=== PATIENT | male | born 1970 | race Caucasian/White ===

== ENCOUNTER 2020-03-01 16:21 | Outpatient (REF) | payer BC, SELFPAY | END 2020-03-01 16:22 | disposition home or self-care (01) | LOC: HO.LAB 16:21 | PROVIDERS: PCP Family Medicine; Visit Provider Internal Medicine | DX: Z20.828 Contact with and (suspected) exposure to other viral communicable diseases (principal) | CPT/HCPCS: U0003 ==

== ENCOUNTER 2020-04-19 09:59 | Outpatient (REF) | payer BC, SELFPAY | END 2020-04-19 10:00 | disposition home or self-care (01) | LOC: HO.LAB 09:59 | PROVIDERS: Visit Provider Internal Medicine | DX: Z20.828 Contact with and (suspected) exposure to other viral communicable diseases (principal) | CPT/HCPCS: C9803; U0003 ==

== ENCOUNTER 2020-11-18 14:38 | Outpatient (REF) | payer BC, SELFPAY ==
--- NOTE | ~2020-11-18 | XR_ITS ---
EXAMINATION: XR RIBS, BILATERAL CLINICAL INFORMATION: Fluoroscopy tinier COMPARISON: None TECHNIQUE: 3 views of the bilateral ribs were obtained. FINDINGS: Lungs are clear. No consolidation, pneumothorax, or pleural effusion. The cardiomediastinal silhouette and pulmonary vasculature are normal. Osseous structures are unremarkable. Multiple views of bilateral ribs reveal no fracture or bony abnormality. There is moderate spondylosis dorsal spine. XR/XR ribs BI 3V IMPRESSION: Unremarkable chest exam. No visible rib fractures seen.
== END 2020-11-18 14:39 | disposition home or self-care (01) ==
LOC: HO.XRAY 14:38
PROVIDERS: Absent Provider Family Medicine; PCP Family Medicine; Visit Provider Emergency Medicine
DX: R07.89 Other chest pain (principal); R07.81 Pleurodynia
CPT/HCPCS: 71110

== ENCOUNTER 2020-12-24 12:01 | Outpatient (REF) | payer BC, SELFPAY ==
--- NOTE | ~2020-12-24 | XR_ITS ---
EXAMINATION: XR STERNUM CLINICAL INFORMATION: Pain and tenderness at the base of the sternum. COMPARISON: Bilateral rib radiographs dated 11/18/2020. TECHNIQUE: 2 views of the sternum were obtained. FINDINGS: The sternum, manubrium and sternomanubrial joint are intact with normal alignment. There is no acute fracture. The xiphoid process shows curvature with anterior orientation of the chest without abnormality. The soft tissues are unremarkable. XR/XR sternum min 2V IMPRESSION: Unremarkable sternum.
== END 2020-12-24 12:02 | disposition home or self-care (01) ==
LOC: HO.XRAY 12:01
PROVIDERS: PCP Family Medicine; Visit Provider Family Medicine
DX: R19.00 Intra-abdominal and pelvic swelling, mass and lump, unspecified site (principal)
CPT/HCPCS: 71120

== ENCOUNTER 2021-03-23 07:54 | Emergency (ER) | payer BC, SELFPAY ==
--- NOTE | ~2021-03-23 | CT_ITS ---
EXAMINATION: CT ABDOMEN AND PELVIS WITHOUT CONTRAST CLINICAL INFORMATION: Right upper to mid back pain. Concern for kidneys. COMPARISON: CT abdomen 07/04/2019 TECHNIQUE: Multidetector volumetric imaging was performed from the superior aspect of the liver through the pubic symphysis. Sagittal and coronal reformatted images were obtained on the technologist's workstation. This CT examination was performed using dose optimization techniques as appropriate, variously including the following: *Automated exposure control *Adjustment of mA and/or kV according to patient size (this includes techniques or standardized protocols for targeted exams where dose is matched to indication/reason for exam; i.e. extremities or head) *Use of iterative reconstruction technique DLP: 779 mGy-cm FINDINGS: LUNG BASES: Evaluation on the chest CT from today. LIVER, GALLBLADDER, AND BILIARY TREE: The liver is normal in size, shape, and attenuation. No focal hepatic lesion or biliary ductal dilatation is present. Status postcholecystectomy. PANCREAS: Unremarkable. SPLEEN: Unremarkable. ADRENAL GLANDS: Unremarkable. KIDNEYS AND URETERS: The kidneys are normal in size, shape, and attenuation. No hydronephrosis, hydroureter, or calculi seen. No perinephric stranding. BLADDER: Unremarkable. GASTROINTESTINAL TRACT: The small and large bowel are unremarkable. Sigmoid diverticulosis. No diverticulitis. The appendix is unremarkable. ABDOMINAL WALL: No significant hernia is appreciated. Postoperative findings of probable left inguinal hernia repair. LYMPH NODES: No lymphadenopathy seen. VASCULAR: Unremarkable. PELVIC VISCERA: No pelvic mass. OSSEOUS STRUCTURES: Redemonstrated are postoperative changes in lower lumbar spine related to instrumented fusion. No evidence of hardware failure. Multilevel degenerative changes in the spine. CT/CT abdomen pelvis wo con IMPRESSION: No acute or significant abnormalities is identified in the abdomen or pelvis. No renal or ureteral calculi. No hydronephrosis.
--- NOTE | ~2021-03-23 | CT_ITS ---
EXAMINATION: CT CHEST WITHOUT CONTRAST CLINICAL INFORMATION: Right lateral posterior chest wall pain. COMPARISON: Rib x-rays of 11/18/2020, chest x-ray of 12/17/2018, chest CT of 11/18/2013, selected images of the abdomen and pelvic CT of 12/12/2018. TECHNIQUE: Multidetector volumetric CT imaging of the chest was done. Axial MIP volume rendering provided. Sagittal and coronal reformatted images were obtained. This CT examination was performed using dose optimization techniques as appropriate, variously including the following: Automated exposure control. Adjustment of mA and/or kV according to patient size (this includes techniques or standardized protocols for targeted exams where dose is matched to indication/reason for exam; i.e. extremities or head). Use of iterative reconstruction technique. DLP: 405 mGy-cm FINDINGS: SOUBRETTE: Unremarkable. LUNGS: The lungs are clear with no evidence of inflammation or significant nodules. A 0.2 cm dense pleural-based/subpleural nodule in the left upper lobe posterolaterally (series 5 image 113) and a tiny 0.2 cm nodule in the inferior right upper lobe anteromedially (series 5 image 204) are stable since the previous CT of 2013 and are considered benign. MEDIASTINUM: Cardiac size is normal. No pericardial effusion. An ascending aorta measures 3.7 cm in maximum AP diameter at the level of right main pulmonary artery, previously 3.5 cm. Mild prominence of the main pulmonary trunk measuring 3.4 cm is a stable finding compared to previous CT. No evidence of axillary or mediastinal adenopathy. Trachea and central bronchi are well patent. PLEURA: There is no pleural effusion. No pleural mass or thickening. AXILLA: No lymphadenopathy. UPPER ABDOMEN: Unremarkable. OSSEOUS STRUCTURES: No acute or suspicious osseous lesions. Changes of diffuse idiopathic skeletal hyperostosis in the spine are noted. CT/CT chest wo con IMPRESSION: No acute or significant abnormality is noted in the chest to explain the patient's symptoms.
[2021-03-23 07:56] VITALS: BP 135/86; PULSE 88; RESP 18; TEMP 36.6; O2SAT 99; BMI 33.7
[2021-03-23] MEDS: oxyCODONE HCl ER 10 MG TAB.ER.12H PO (09:52)
[2021-03-23] MEDS: diazePAM 5 MG TABLET PO (09:52)
[2021-03-23] MEDS: Lidocaine 4 % Patch ADH..PATCH 1 PATCH TRANSDERMA (10:22)
--- NOTE | 2021-03-23 10:54 | ED_ITS ---
HPI - General Adult General Chief complaint: Back Pain/Injury Stated complaint: rt side rib pain radiating to back Time Seen by Provider: 03/23/21 09:20 Source: patient Mode of arrival: ambulatory Limitations: no limitations History of Present Illness HPI narrative: 50-year-old male with a past medical history of chronic neck and back pain who has had neck and back surgery in the past, hypertension, hyperlipidemia, depression and trigeminal neuralgia presenting to the ED with complaints of atraumatic right lateral/posterior ribcage pain at the ?floating ribs? per the patient over the past year. Reports that he is prescribed muscle relaxants and 15 mg of immediate release oxycodone for his chronic back pain and he has been taking this for his rib cage pain and no symptomatic relief. He reports that he has an appointment with pain management on Wednesday for his rib cage pain. He reports that he has had x-rays in the past and they have not shown anything and he is concerned that he needs more imaging or labs. He denies any injury to the site. He reports it is worse with movement and palpation. He denies any dizziness, headaches, neck pain/stiffness, chest pain, shortness of breath, dyspnea on exertion, orthopnea, palpitations, rashes, nausea/vomiting/diarrhea, abdominal pain, paresthesias, recent travel or sick contacts, history of DVT or PE, estrogen usage, history of cancer or recent immobilization or surgery, recent trauma or falls or any other symptoms complaints or concerns at this time. MD complaint: Right lateral/posterior ribcage pain Onset (ago): year(s) (One year) Location: chest (Right lateral/posterior ribcage) Radiation: non-radiation Severity: severe Severity scale (1-10): >10 Quality: stabbing, aching and constant Pain Consistency: constant Relieving factors: none Exacerbating factors: movement Associated symptoms: denies other symptoms Treatments prior to arrival: other (He is prescribed muscle relaxants and 15 mg of oxycodone immediate release and no symptomatic relief) Related Data Previous Rx's Medication Instructions Recorded diazepam 5 mg tablet (Valium) 5 mg PO TID PRN #14 tab 03/23/21 oxycodone 10 mg tablet,crush 10 mg PO Q12H #14 tab 03/23/21 resistant,extended release 12 hr (OxyContin) Allergies Allergy/AdvReac Type Severity Reaction Status Date / Time No Known Allergies Allergy Unverified 01/18/20 17:18 [No Known Allergies*] none Allergy Unknown Uncoded 04/28/19 00:00 Review of Systems Review of Systems: Constitutional : No Weight loss, No Fever, No Chills, No Night Sweats, No Fatigue, No Malaise ENT/Mouth : No Hearing loss, No Ear Pain, No Nasal Congestion, No Sinus Pain, No Hoarseness, No sore throat, No Rhinorrhea, No Swallowing Difficulty Eyes: No Eye Pain, No Swelling, No Redness, No Foreign Body, No Discharge, No Vision Changes Cardiovascular : No Chest Pain, No SOB, No Dyspnea on Exertion, No Orthopnea, No Edema, No Palpitations Respiratory : No Cough, No Sputum, No Wheezing, No Smoke Exposure, No Dyspnea Gastrointestinal : No Nausea, No Vomiting, No Diarrhea, No Constipation, No abdominal Pain, No Hematochezia, No Melena Genitourinary : no irregular bleeding, No Dysuria, No Urinary Frequency, No Hematuria, No Urinary Incontinence, No Urgency, No Flank Pain, No Urinary Flow Changes, No Hesitancy Musculoskeletal : + Rib cage pain, No joint pain, No Myalgias, No Joint Swelling Skin : No Skin Lesions, No rash Neuro : No Weakness, No Numbness, No Paresthesias, No Loss of Consciousness, No Dizziness, No Headache Psych : No Anxiety/Panic, No Depression, No SI/HI/AH/VH, No Social Issues, Heme/Lymph: No Bruising, No Bleeding,No Lymphadenopathy Endocrine : No Polyuria, No Polydipsia, No Temperature Intolerance Yes all other systems are reviewed and are negative FOR[facility]LY [facility] Past Medical History Attestation statement: The following information was validated with the patient. Medical History Cervical vertebral fusion Chronic back pain Surgical History H/O hernia repair History of carpal tunnel surgery History of cholecystectomy History of neck surgery Previous back surgery Social History Social History Advance Directives: No Physical Exam Vital Signs: Vital Signs: Last Vital Signs Temp 98.0 F 03/23/21 11:25 Pulse 70 03/23/21 11:25 Resp 16 03/23/21 11:25 BP 111/80 03/23/21 11:25 Pulse Ox 97 03/23/21 11:25 Body Mass Index 33.7 vital signs have been reviewed as normal and appeared to be correct. Blood pressure normal. Heart rate normal. Respiration rate normal. Temperature normal. Oxygen saturation normal. Appearance: Alert. Oriented X3. No acute distress. Head: Normal external exam. Normocephalic. Atraumatic. Eyes: PERRLA. EOMI. Conjunctiva and sclera normal. Eyelids normal. ENT: Pharynx normal. Uvula midline. Moist mucous membranes. No trismus noted. No drooling noted. No muffled voice noted. Neck: Normal inspection. Neck supple. FROM. No adenopathy. Thyroid Normal. No meningeal signs. No neck mass noted. CVS: Normal heart rate and rhythm. Heart sound normal. Pulses normal throughout. No murmurs/rales/gallops. Respiratory: No respiratory distress. Painless inspiration. Breath sounds normal. No wheezes/rales/rhonchi noted. Chest tender to palpation to right lateral/posterior ribcage near the 11/12 ribs. No rashes are noted. Not consistent with flail chest. No crepitus is noted. No signs of infection are noted. No accessory muscle usage noted or decreased air movement noted. Abdomen: Soft and nontender. Bowel sounds normal in all 4 quadrants. No distention noted. No organomegaly noted. No visible injury noted. Back: No CVA tenderness. Full range of motion noted. No rashes/lesion/indura tion/fluctuance or signs of infection noted. Skin: Skin warm and dry. Normal skin color. Normal skin turgor. No rashes/lesions/lacerations noted. Extremities: Extremities exhibit normal range of motion. Extremities nontender. Neuro: Oriented X 3. No motor deficit. No sensory deficit. Reflexes normal. Normal steady gait. No focal neuro deficits noted. Vascular: + radial pulses/+ 2 distal pedal pulses/+2 dorsalis pedis b/l. Normal cap refill. No cyanosis noted to upper extremity nails and lower extremity toes nails. Course Course Course Narrative: 50-year-old male with a past medical history of chronic neck and back pain who has had neck and back surgery in the past, hypertension, hyperlipidemia, depression and trigeminal neuralgia presenting to the ED with complaints of atraumatic right lateral/posterior ribcage pain at the ?floating ribs? per the patient over the past year. Reports that he is prescribed muscle relaxants and 15 mg of immediate release oxycodone for his chronic back pain and he has been taking this for his rib cage pain and no symptomatic relief. He reports that he has an appointment with pain management on Wednesday for his rib cage pain. He reports that he has had x-rays in the past and they have not shown anything and he is concerned that he needs more imaging or labs. He denies any injury to the site. He reports it is worse with movement and pal pation. No labs are indicated as patient denies any other symptoms and he reports that it has been going on for a year. Therefore CT scan of chest without contrast obtained and revealed chronic changes no acute processes were noted. I printed out the results and given to the patient and explained to him that this is most likely muscular in nature especially if it has been a year that he would need to follow up with his primary care provider and possibly need physical therapy. I explained to him if he is currently on a muscle relaxer I can change his muscle relaxer to Valium give him Lidoderm patches and if he is currently on 50 mg of oxycodone immediate release I can give him OxyContin 10 mg that he can take twice a day and he can continue taking his previously prescribed 15 mg oxycodone for his breakthrough pain along with instructions follow-up with primary care provider/pain management and to return if any new or worsening symptoms. Patient understands agrees with this plan. Reevaluation(s) Reevaluation #1: Upon discharge after I discussed with the patient his results and asked him if he ever had his kidneys look that he decided to ask the nurse that he wanted to speak to me again and he wanted to have his kidneys evaluated. Therefore labs were obtained and all within normal limits. UA within normal limits no evidence of UTI. And CT scan abdomen pelvis without IV contrast negative for any acute processes. Therefore at this time will continue with the plan above with muscular skeletal pain instructions return if any new or worsening symptoms to follow up with PCP/pain management. Patient understands agrees with this plan. Time: 12:28 Medical Decision Making Lab Data Result diagrams: 03/23/21 12:03 03/23/21 12:03 Labs: Lab Results 03/23/21 03/23/21 03/23/21 Range/Units 12:03 12:03 12:03 WBC 7.3 (4.8-10.8) X10*3/uL RBC 5.34 (4.60-5.80) X10*6/uL Hgb 14.7 (14.0-18.0) g/dl Hct 44.6 (42.0-52.0) % MCV 83.5 (80.0-98.0) fL MCH 27.5 (27.0-33.0) pg MCHC 33.0 (31.0-36.0) g/dl RDW 12.1 (11.0-16.0) % Plt Count 180 (160-400) X10*3/uL MPV 12.2 (9.4-12.4) fL Immature Gran % (Auto) 0.4 (0.0-0.4) % Neut % (Auto) 68.1 (45-73) % Lymph % (Auto) 23.5 (20-40) % [place] % (Auto) 7.0 (2-11) % Eos % (Auto) 0.5 (0-4) % Baso % (Auto) 0.5 (0-2) % Lymph # (Auto) 1.7 (1.2-4.9) X10*3/uL [place] # (Auto) 0.5 (0.1-1.2) X10*3/uL Eos # (Auto) 0.0 (0.0-0.4) X10*3/uL Baso # (Auto) 0.0 (0.0-0.2) X10*3/uL Abs Immat Gran (auto) 0.03 (0.00-0.03) X10*3/uL Absolute Neuts (auto) 5.0 (2.0-8.3) x10*3/uL Absolute Nucleated RBC 0.000 (0.0-0.012) X10*3/uL Nucleated RBC % (auto) 0.0 (0.0-0.2) /100WBC Sodium 139 (135-145) mmol/L Potassium 4.2 (3.3-5.1) mmol/L Chloride 104 (96-108) mmol/L Carbon Dioxide 29 (22-29) mmol/L Anion Gap 10 L (12-20) BUN 12 (9-16) mg/dL Creatinine 1.03 (0.5-1.4) mg/dL Estim Creat Clear Calc 106.0 Estimated GFR > 60 Random Glucose 103 (60-115) mg/dL Calcium 9.2 (8.4-10.2) mg/dL Urine Color YELLOW Urine Appearance CLEAR Urine pH 6.0 (5.0-8.0) Ur Specific [place] 1.015 (1.005-1.025) Urine Protein NEG (NEG-TRACE) MG/DL Urine Glucose (UA) NEG (NEG) MG/DL Urine Ketones NEG (NEG) MG/DL Urine Blood NEG (NEG) Urine Nitrite NEG (NEG) Ur Leukocyte Esterase NEG (NEG) Imaging Data CT scan of chest without contrast: Attestation: I personally reviewed and interpreted this imaging study as follows: Radiologist's impression: FINDINGS: COLOR SPECIALIST: Unremarkable. LUNGS: The lungs are clear with no evidence of inflammation or significant nodules. A 0.2 cm dense pleural-based/subpleural nodule in the left upper lobe posterolaterally (series 5 image 113) and a tiny 0.2 cm nodule in the inferior right upper lobe anteromedially (series 5 image 204) are stable since the previous CT of 2014 and are considered benign. ? MEDIASTINUM: Cardiac size is normal. No pericardial effusion. An ascending aorta measures 3.7 cm in maximum AP diameter at the level of right main pulmonary artery, previously 3.5 cm. Mild prominence of the main pulmonary trunk measuring 3.4 cm is a stable finding compared to previous CT. No evidence of axillary or mediastinal adenopathy. Trachea and central bronchi are well patent. PLEURA: There is no pleural effusion. No pleural mass or thickening.? AXILLA: No lymphadenopathy.? UPPER ABDOMEN: Unremarkable.? OSSEOUS STRUCTURES: No acute or suspicious osseous lesions. Changes of diffuse idiopathic skeletal hyperostosis in the spine are noted.? CT/CT chest wo con IMPRESSION: No acute or significant abnormality is noted in the chest to explain the patient's symptoms. CT scan abdomen pelvis without IV contrast: Attestation: I personally reviewed and interpreted this imaging study as follows: Radiologist's impression: FINDINGS: LUNG BASES: Evaluation on the chest CT from today.? LIVER, GALLBLADDER, AND BILIARY TREE: The liver is normal in size, shape, and attenuation. No focal hepatic lesion or biliary ductal dilatation is present. Status postcholecystectomy.? PANCREAS: Unremarkable.? SPLEEN: Unremarkable.? ADRENAL GLANDS: Unremarkable.? KIDNEYS AND URETERS: The kidneys are normal in size, shape, and attenuation. No hydronephrosis, hydroureter, or calculi seen. No perinephric stranding. ? BLADDER: Unremarkable.? GASTROINTESTINAL TRACT: The small and large bowel are unremarkable. Sigmoid diverticulosis. No diverticulitis. The appendix is unremarkable.? ABDOMINAL WALL: No significant hernia is appreciated. Postoperative findings of probable left inguinal hernia repair. LYMPH NODES: No lymphadenopathy seen. VASCULAR: Unremarkable. PELVIC VISCERA: No pelvic mass.? OSSEOUS STRUCTURES: Redemonstrated are postoperative changes in lower lumbar spine related to instrumented fusion. No evidence of hardware failure. Multilevel degenerative changes in the spine. CT/CT abdomen pelvis wo con IMPRESSION: No acute or significant abnormalities is identified in the abdomen or pelvis. No renal or ureteral calculi. No hydronephrosis.? Discharge Plan Discharge Clinical Impression: Rib pain on right side, Pain on movement of skeletal muscle Patient Disposition: Home, Self-Care Instructions: Musculoskeletal Pain (ED) Prescriptions: New diazepam [Valium] 5 mg tablet 5 mg PO TID PRN (Reason: muscle spasm) Qty: 14 RF: 0 oxycodone [OxyContin] 10 mg tablet,oral only,ext.rel.12 hr 10 mg PO Q12H Qty: 14 RF: 0 Referrals: Vera Moreno DO [Primary Care Provider] - 2 days Stand Alone Forms: Work/School Release Print Language: Estonian
[2021-03-23 11:25] VITALS: BP 111/80; PULSE 70; RESP 16; TEMP 36.7; O2SAT 97
[2021-03-23 12:09] LABS: MANUAL DIFF FLAG NO
[2021-03-23 12:12] LABS: Appearance Urine CLEAR; Color Urine YELLOW; Glucose Urine UA NEG (NEG); Leukocyte Esterase Urine NEG (NEG); Nitrite Urine NEG (NEG); Specific Gravity - Urine 1.015 (1.005-1.025); Urine Blood NEG (NEG); Urine Ketones NEG (NEG); Urine Protein NEG (NEG-TRACE)
[2021-03-23 12:16] LABS: Basophils Percent Auto 0.5 % (0-2); Eosinophils Percent Auto 0.5 % (0-4); Hematocrit 44.6 % (42.0-52.0); Hemoglobin 14.7 g/dl (14.0-18.0); Imm Gran Abs Auto 0.03 X10*3/uL (0.00-0.03); Imm Gran Pct Auto 0.4 % (0.0-0.4); Lymphocytes Absolute Auto 1.7 X10*3/uL (1.2-4.9); Lymphocytes Percent Auto 23.5 % (20-40); Mean Corpuscular Hemoglobin 27.5 pg (27.0-33.0); Mean Corpuscular Volume 83.5 fL (80.0-98.0); Mean Platelet Volume 12.2 fL (9.4-12.4); Monocytes Absolute Auto 0.5 X10*3/uL (0.1-1.2); Neutrophils Percent Auto 68.1 % (45-73); Platelet Count 180 X10*3/uL (160-400); Red Blood Count 5.34 X10*6/uL (4.60-5.80); Red Cell Distribution Width 12.1 % (11.0-16.0); White Blood Count 7.3 X10*3/uL (4.8-10.8)
[2021-03-23 12:27] LABS: Anion Gap 10 (12-20); Blood Urea Nitrogen 12 mg/dL (9-16); Calcium 9.2 mg/dL (8.4-10.2); Carbon Dioxide 29 mmol/L (22-29); Chloride 104 mmol/L (96-108); Estimated Glomerular Filt Rate > 60; Glucose Random 103 mg/dL (60-115); Potassium 4.2 mmol/L (3.3-5.1); Sodium 139 mmol/L (135-145)
== END 2021-03-23 12:34 | disposition home or self-care (01) ==
PROVIDERS: Physician Assistant Medical; Emergency Provider Emergency Medicine Emergency Medical Services; PCP Family Medicine
DX: M54.50 Low back pain, unspecified (principal); M54.2 Cervicalgia; R07.81 Pleurodynia; R07.89 Other chest pain; Z79.899 Other long term (current) drug therapy
CPT/HCPCS: 36415; 71250; 74176; 80048; 81003; 85025; 99284

== ENCOUNTER 2021-08-04 17:14 | Emergency (ER) | payer BC, SELFPAY ==
[2021-08-04 18:09] VITALS: BP 148/82; PULSE 77; RESP 20; TEMP 36.6; O2SAT 97; BMI 33.3
[2021-08-04 21:19] LABS: Hematocrit 42.8 % (42.0-52.0); Hemoglobin 13.9 g/dl (14.0-18.0); Mean Corpuscular HGB Conc 32.5 g/dl (31.0-36.0); Mean Corpuscular Hemoglobin 27.3 pg (27.0-33.0); Mean Corpuscular Volume 84.1 fL (80.0-98.0); Mean Platelet Volume 12.1 fL (9.4-12.4); Platelet Count 172 X10*3/uL (160-400); Red Blood Count 5.09 X10*6/uL (4.60-5.80); Red Cell Distribution Width 12.4 % (11.0-16.0)
[2021-08-04 21:23] LABS: WBC ABN SCTR FOR CBC 1
[2021-08-04 21:27] LABS: Appearance Urine CLEAR; Color Urine YELLOW; Glucose Urine UA NEG (NEG); Leukocyte Esterase Urine NEG (NEG); Nitrite Urine NEG (NEG); Specific Gravity - Urine >= 1.030 (1.005-1.025); UACC Culture Trigger NO; Urine Blood 1+ (NEG); Urine Ketones NEG (NEG); Urine Protein NEG (NEG-TRACE)
[2021-08-04 21:37] LABS: Alanine Aminotransferase 15 U/L (0-40); Albumin Level 4.3 g/dL (3.5-5.0); Alkaline Phosphatase 73 U/L (39-117); Anion Gap 9 (12-20); Aspartate Amino Transferase 16 U/L (5-37); Bilirubin Total 0.4 mg/dL (0.0-1.0); Blood Urea Nitrogen 19 mg/dL (9-16); Calcium 9.3 mg/dL (8.4-10.2); Carbon Dioxide 31 mmol/L (22-29); Chloride 104 mmol/L (96-108); Creatinine Clr Calc Pharmacy 81.9; Estimated Glomerular Filt Rate 58; Glucose Random 85 mg/dL (60-115); Lipase 27 U/L (8-78); Sodium 140 mmol/L (135-145); Total Protein 6.7 g/dL (6.5-8.0)
[2021-08-04 21:43] LABS: Mucus Urine 1+ /LPF; Squamous Epithelial Cell Urine TRACE /LPF; WBC Urine 0-2 /HPF (0-4)
[2021-08-04 21:47] LABS: White Blood Count 7.4 X10*3/uL (4.8-10.8)
[2021-08-04 21:48] LABS: Atypical Lymph Absolute Manual 0.1 x10*3/uL; Atypical Lymphs Percent Manual 2 % (0-6); Band Neutrophils Percent 2 % (3-5); Basophils Abs Manual 0.1 X10*3/uL (0.0-0.2); Basophils Percent Manual 2 % (0-2); Eosinophils Absolute Manual 0.1 X10*3/uL (0.0-0.4); Eosinophils Percent Manual 1 % (0-4); Lymphocytes Percent Manual 27 % (20-40); Monocytes Absolute Manual 0.7 X10*3/uL (0.1-1.2); Monocytes Percent Manual 9 % (2-11); Neutrophils Absolute Manual 4.4 X10*3/uL (2.0-8.3); Neutrophils Percent Manual 57 % (45-73)
[2021-08-04 21:49] LABS: Platelet Estimate NORMAL (NORMAL); Platelet Morphology Comment NORMAL; RBC Morphology NORMAL
== END 2021-08-04 22:38 | disposition left against medical advice (07) ==
PROVIDERS: Emergency Provider Emergency Medicine; PCP Family Medicine
DX: R10.9 Unspecified abdominal pain (principal); I10 Essential (primary) hypertension; E78.5 Hyperlipidemia, unspecified
CPT/HCPCS: 36415; 80053; 81001; 83690; 85007; 85027; 99283

== ENCOUNTER 2021-08-06 09:04 | Emergency (ER) | payer BC, SELFPAY ==
--- NOTE | ~2021-08-06 | CT_ITS ---
EXAMINATION: CT ABDOMEN AND PELVIS WITH CONTRAST CLINICAL INFORMATION: Early Satiety . Discomfort. COMPARISON: 03/23/2021 TECHNIQUE: Multidetector volumetric images were obtained from the superior aspect of the liver through the pubic symphysis following administration 85 mL of Omnipaque 350 intravenous contrast. Sagittal and coronal reformatted images were obtained on the technologist's workstation. Oral contrast: No This CT examination was performed using dose optimization techniques as appropriate, variously including the following: *Automated exposure control *Adjustment of mA and/or kV according to patient size (this includes techniques or standardized protocols for targeted exams where dose is matched to indication/reason for exam; i.e. extremities or head) *Use of iterative reconstruction technique DLP: 812 mGy-cm FINDINGS: LUNG BASES: The visualized lung bases are unremarkable. LIVER, GALLBLADDER, AND BILIARY TREE: The liver is normal in size, shape, and attenuation. No focal hepatic lesion or biliary ductal dilatation is present. Cholecystectomy. PANCREAS: Unremarkable. SPLEEN: Unremarkable. ADRENAL GLANDS: Unremarkable. KIDNEYS AND URETERS: The kidneys are normal in size, shape, and attenuation. No hydronephrosis, hydroureter, or calculi seen. No perinephric stranding. BLADDER: Unremarkable. GASTROINTESTINAL TRACT: The stomach is unremarkable. Normal caliber small bowel. No obstruction. No colonic wall thickening or inflammatory change. Minimal diverticulosis without diverticulitis. No free air or free fluid. Normal appendix. ABDOMINAL WALL: No significant hernia is appreciated. LYMPH NODES: Normal. VASCULAR: Normal caliber aorta with mild atherosclerotic calcification. PELVIC VISCERA: The prostate and seminal vesicles are unremarkable. OSSEOUS STRUCTURES: No acute or suspicious osseous abnormality. Posterior fusion hardware at L4-L5 with disc spacer at L5-S1. Degenerative changes of the spine. Mild degenerative changes in the hips. CT/CT abdomen pelvis w con IMPRESSION: No acute or suspicious findings of the abdomen or pelvis. Fleischner guidelines were followed.
[2021-08-06 09:08] VITALS: BP 122/80; PULSE 72; RESP 18; TEMP 36.7; O2SAT 99; BMI 34.1
[2021-08-06 12:26] LABS: MANUAL DIFF FLAG NO
[2021-08-06 12:29] LABS: Basophils Percent Auto 0.5 % (0-2); Eosinophils Percent Auto 0.6 % (0-4); Hematocrit 45.9 % (42.0-52.0); Hemoglobin 14.8 g/dl (14.0-18.0); Imm Gran Abs Auto 0.02 X10*3/uL (0.00-0.03); Imm Gran Pct Auto 0.3 % (0.0-0.4); Lymphocytes Absolute Auto 1.5 X10*3/uL (1.2-4.9); Mean Corpuscular HGB Conc 32.2 g/dl (31.0-36.0); Mean Corpuscular Hemoglobin 27.3 pg (27.0-33.0); Mean Corpuscular Volume 84.7 fL (80.0-98.0); Monocytes Absolute Auto 0.5 X10*3/uL (0.1-1.2); Monocytes Percent Auto 7.9 % (2-11); Neutrophils Absolute Auto 4.2 x10*3/uL (2.0-8.3); Neutrophils Percent Auto 66.7 % (45-73); Platelet Count 186 X10*3/uL (160-400); Red Blood Count 5.42 X10*6/uL (4.60-5.80); Red Cell Distribution Width 12.5 % (11.0-16.0); White Blood Count 6.2 X10*3/uL (4.8-10.8)
[2021-08-06 12:51] LABS: Lipase 17 U/L (8-78)
[2021-08-06 12:52] LABS: Alanine Aminotransferase 15 U/L (0-40); Albumin Level 4.6 g/dL (3.5-5.0); Alkaline Phosphatase 78 U/L (39-117); Anion Gap 12 (12-20); Aspartate Amino Transferase 15 U/L (5-37); Bilirubin Total 0.8 mg/dL (0.0-1.0); Blood Urea Nitrogen 15 mg/dL (9-16); Calcium 9.9 mg/dL (8.4-10.2); Carbon Dioxide 29 mmol/L (22-29); Chloride 105 mmol/L (96-108); Creatinine Clr Calc Pharmacy 97.9; Estimated Glomerular Filt Rate > 60; Glucose Random 115 mg/dL (60-115); Potassium 4.7 mmol/L (3.3-5.1); Sodium 141 mmol/L (135-145); Total Protein 7.3 g/dL (6.5-8.0)
--- NOTE | 2021-08-06 15:26 | ED.ABDPAIN ---
HPI - Abdominal Pain General Chief Complaint: Abdominal Pain Stated Complaint: abd pain/bloated Time Seen by Provider: 08/06/21 12:14 Source: patient Mode of arrival: ambulatory Limitations: no limitations History of Present Illness HPI narrative: Patient comes to the emergency room complaining of abdominal distention and early satiety for 3 months. Patient states that any time that he eats, he feels full fairly quickly. Patient denies vomiting or diarrhea. Related Data Previous Rx's Medication Instructions Recorded diazepam 5 mg tablet (Valium) 5 mg PO TID PRN #14 tab 03/23/21 oxycodone 10 mg tablet,crush 10 mg PO Q12H #14 tab 03/23/21 resistant,extended release 12 hr (OxyContin) polyethylene glycol 3350 17 17 g PO DAILY #510 g 08/06/21 gram/dose oral powder (Miralax) Allergies Allergy/AdvReac Type Severity Reaction Status Date / Time No Known Allergies Allergy Verified 08/04/21 18:12 Review of Systems Review of Systems Constitutional : No Weight loss, No Fever, No Chills, No Night Sweats, No Fatigue, No Malaise ENT/Mouth : No Hearing loss, No Ear Pain, No Nasal Congestion, No Sinus Pain, No Hoarseness, No sore throat, No Rhinorrhea, No Swallowing Difficulty Eyes: No Eye Pain, No Swelling, No Redness, No Foreign Body, No Discharge, No Vision Changes Cardiovascular : No Chest Pain, No SOB, No Dyspnea on Exertion, No Orthopnea, No Edema, No Palpitations Respiratory : No Cough, No Sputum, No Wheezing, No Smoke Exposure, No Dyspnea Gastrointestinal : No Nausea, No Vomiting, No Diarrhea, Complaining of constipation, abdominal discomfort and distention every time he eats, early satiety Genitourinary : no irregular bleeding, No Dysuria, No Urinary Frequency, No Hematuria, No Urinary Incontinence, No Urgency, No Flank Pain, No Urinary Flow Changes, No Hesitancy Musculoskeletal : No joint pain, No Myalgias, No Joint Swelling Skin : No Skin Lesions, No rash Neuro : No Weakness, No Numbness, No Paresthesias, No Loss of Consciousness, No Dizziness, No Headache Psych : No Anxiety/Panic, No Depression, No SI/HI/AH/VH, No Social Issues, Heme/Lymph: No Bruising, No Bleeding,No Lymphadenopathy Endocrine : No Polyuria, No Polydipsia, No Temperature Intolerance [facility] Past Medical History Medical History Cervical vertebral fusion Chronic back pain Surgical History H/O hernia repair History of carpal tunnel surgery History of cholecystectomy History of neck surgery Previous back surgery Social History Social History Advance Directives: No Advance Directives Information Provided: No Physical Exam ED Vital Signs: Vital Signs - 24 hr 08/06/21 09:08 08/06/21 16:19 Temperature 98.0 F 98.3 F Pulse Rate 72 65 Respiratory Rate 18 20 Blood Pressure 122/80 117/82 Pulse Oximetry 99 97 BMI result Body Mass Index 34.1 Const Other: Appearance: Alert. Oriented X3. No acute distress. Eyes: Pupils equal, round and reactive to light. ENT: Pharynx normal. Neck: Normal inspection. Neck supple. No lymph nodes noted. No crepitus CVS: Normal heart rate and rhythm. Pulses normal. Normal S1 and S2 Respiratory: No respiratory distress. Breath sounds normal. No Wheezing. No rales Abdomen: Soft and nontender. No distension, no rigidity, no guarding, no rebound Skin: Skin warm and dry. Normal skin color. Normal skin turgor. Extremities: No lower extremity edema. No Lacerations. No Rash Neuro: Oriented X 3. No motor deficit. No sensory deficit. Moving all extremities. No slurred speech. CN 2 through 12 grossly intact Psych: calm, cooperative, normal affect Course Course Course Narrative: Discussed the labs and imaging with the patient, no acute findings. Patient's discomfort likely secondary to constipation. Patient takes 15 mg of oxycodone b.i.d.. MDM - Abdominal Pain Lab Data Result diagrams: 08/06/21 12:22 08/06/21 12:22 Labs: Lab Results 08/06/21 08/06/21 08/06/21 Range/Units 12:22 12:22 12:22 WBC 6.2 (4.8-10.8) X10*3/uL RBC 5.42 (4.60-5.80) X10*6/uL Hgb 14.8 (14.0-18.0) g/dl Hct 45.9 (42.0-52.0) % MCV 84.7 (80.0-98.0) fL MCH 27.3 (27.0-33.0) pg MCHC 32.2 (31.0-36.0) g/dl RDW 12.5 (11.0-16.0) % Plt Count 186 (160-400) X10*3/uL MPV 12.0 (9.4-12.4) fL Immature Gran % (Auto) 0.3 (0.0-0.4) % Neut % (Auto) 66.7 (45-73) % Lymph % (Auto) 24.0 (20-40) % Wilcox % (Auto) 7.9 (2-11) % Eos % (Auto) 0.6 (0-4) % Baso % (Auto) 0.5 (0-2) % Lymph # (Auto) 1.5 (1.2-4.9) X10*3/uL Wilcox # (Auto) 0.5 (0.1-1.2) X10*3/uL Eos # (Auto) 0.0 (0.0-0.4) X10*3/uL Baso # (Auto) 0.0 (0.0-0.2) X10*3/uL Abs Immat Gran (auto) 0.02 (0.00-0.03) X10*3/uL Absolute Neuts (auto) 4.2 (2.0-8.3) x10*3/uL Absolute Nucleated RBC 0.000 (0.0-0.012) X10*3/uL Nucleated RBC % (auto) 0.0 (0.0-0.2) /100WBC Sodium 141 (135-145) mmol/L Potassium 4.7 (3.3-5.1) mmol/L Chloride 105 (96-108) mmol/L Carbon Dioxide 29 (22-29) mmol/L Anion Gap 12 (12-20) BUN 15 (9-16) mg/dL Creatinine 1.11 (0.5-1.4) mg/dL Estim Creat Clear Calc 97.9 Estimated GFR > 60 Random Glucose 115 D (60-115) mg/dL Calcium 9.9 D (8.4-10.2) mg/dL Total Bilirubin 0.8 (0.0-1.0) mg/dL AST 15 (5-37) U/L ALT 15 (0-40) U/L Alkaline Phosphatase 78 (39-117) U/L Total Protein 7.3 (6.5-8.0) g/dL Albumin 4.6 (3.5-5.0) g/dL Lipase 17 (8-78) U/L Imaging Data CT scan - abdomen: Radiologist's impression: FINDINGS: LUNG BASES: The visualized lung bases are unremarkable.? LIVER, GALLBLADDER, AND BILIARY TREE: The liver is normal in size, shape, and attenuation. No focal hepatic lesion or biliary ductal dilatation is present. Cholecystectomy.? PANCREAS: Unremarkable.? SPLEEN: Unremarkable.? ADRENAL GLANDS: Unremarkable.? KIDNEYS AND URETERS: The kidneys are normal in size, shape, and attenuation. No hydronephrosis, hydroureter, or calculi seen. No perinephric stranding. ? BLADDER: Unremarkable.? GASTROINTESTINAL TRACT: The stomach is unremarkable. Normal caliber small bowel. No obstruction. No colonic wall thickening or inflammatory change. Minimal diverticulosis without diverticulitis. No free air or free fluid. Normal appendix.? ABDOMINAL WALL: No significant hernia is appreciated.? LYMPH NODES: Normal. VASCULAR: Normal caliber aorta with mild atherosclerotic calcification. PELVIC VISCERA: The prostate and seminal vesicles are unremarkable.? OSSEOUS STRUCTURES: No acute or suspicious osseous abnormality. Posterior fusion hardware at L4-L5 with disc spacer at L5-S1. Degenerative changes of the spine. Mild degenerative changes in the hips.? CT/CT abdomen pelvis w con IMPRESSION: No acute or suspicious findings of the abdomen or pelvis.? ? Fleischner guidelines were followed. Discharge Plan Discharge Clinical Impression: Abdominal distension, Constipation Patient Disposition: Home, Self-Care Instructions: Constipation (ED) Additional Instructions: Please follow-up with your primary care physician tomorrow. If you have any worsening or new symptoms, please return to the emergency room or call 911 Prescriptions: New polyethylene glycol 3350 [Miralax] 17 gram/dose powder 17 g PO DAILY Qty: 510 0RF No Action diazepam [Valium] 5 mg tablet 5 mg PO TID PRN (Reason: muscle spasm) Qty: 14 0RF oxycodone [OxyContin] 10 mg tablet,oral only,ext.rel.12 hr 10 mg PO Q12H Qty: 14 0RF Rx Instructions: May be partially filled upon patient request
[2021-08-06] MEDS: iohexoL 350 MG/ML 100 ML INFUS..BTL IV (15:56)
[2021-08-06] MEDS: oxyCODONE HCl Immed Release 15 MG TABLET PO (16:06)
[2021-08-06 16:19] VITALS: BP 117/82; PULSE 65; RESP 20; TEMP 36.8; O2SAT 97
--- NOTE | 2021-08-06 17:17 | PC.NURSE ---
pt is a/o. provided with DC instructions, verbalized understanding.
== END 2021-08-06 17:18 | disposition home or self-care (01) ==
PROVIDERS: Emergency Provider Emergency Medicine; PCP Family Medicine
DX: K59.00 Constipation, unspecified (principal); R14.0 Abdominal distension (gaseous); Z79.899 Other long term (current) drug therapy
CPT/HCPCS: 36415; 74177; 80053; 83690; 85025; 99284; Q9967

== ENCOUNTER 2022-02-01 03:43 | Emergency (ER) | payer BC, SELFPAY | END 2022-02-01 04:54 | disposition left against medical advice (07) | PROVIDERS: Emergency Provider Emergency Medicine | DX: M54.50 Low back pain, unspecified (principal) ==

== ENCOUNTER 2022-02-01 12:16 | Emergency (ER) | payer BC, SELFPAY ==
[2022-02-01 12:20] VITALS: BP 114/73; PULSE 80; RESP 18; TEMP 36.1; O2SAT 97; BMI 33.0
--- OUTSIDE RECORDS SUMMARY | 2022-02-01 12:31 | XMS_ITS | Continuity of Care Document ---
:1970 Author Organization [facility] Address [address] [place] [phone]- Care Team Providers Name Role Phone Vera Moreno DO Primary Care Physician [place] [facility] [place] 10[place]19 [facility] [address] [place] [address]- [facility] Attending Physician: Hood Mcclain MD Referring Physician: Vera Moreno DO Allergies, Adverse Reactions, Alerts Substance Reaction Severity Status NKA Active Immunizations Not Given Vaccine Date Status Refusal Reason pneumococcal 23-valent vaccine 10/28/16 Not Given P arent Or Guardian Refuses Medications Dulcolax Stool Softener 100 mg oral capsule 1 capsule = 100 mg, By Mouth, 2 times a day, PRN for constipation, # 20 capsule, 0 Refills, Maintenance, 11/16/13 6:38:05, Capsule Start Date: 11/16/13 Status: OrderedFish Oil = 1,000 mg, By Mouth, Daily, 0 Refills, Maintenance, 10/21/16 16:01:29 Start Date: 10/21/16 Status: Orderedgabapentin 300 mg oral capsule 300 mg, 1, capsule, By Mouth, 3 times a day, # 270 capsule, Refills 0, Maintenance, 08/29/19 14:33:00 EDT Start Date: 08/29/19 Status: OrderedMiraLax = 17 Gm, By Mouth, Daily, PRN Constipation, 0 Refills, Maintenance, 10/21/16 16:00:58 Start Date: 10/21/16 Status: OrderedOxycodone = 15 mg, By Mouth, Every 8 hours, PRN as needed for pain, 0 Refills, Maintenance, 10/21/16 16:00:05 Start Date: 10/21/16 Status: Ordered Social History Social History Type Response Smoking Status Never (less than 100 in life time) entered on: 08/29/19 Sex
--- OUTSIDE RECORDS SUMMARY | 2022-02-01 12:31 | XMS_ITS | Continuity of Care Document ---
:1970 Author Organization [facility] Address [address] [place] [address]- Care Team Providers Name Role Phone Vera Moreno DO Primary Care Physician [place] [facility] [place]s): 09/15/21 - 10/15/21 [facility] [address] [place] [id number] Attending Physician: Bobby Vazquez Admitting Physician: Bobby Vazquez Referring Physician: Bobby Vazquez Allergies, Adverse Reactions, Alerts No Known Allergies Immunizations Not Given Vaccine Date Status Refusal Reason pneumococcal 23-valent vaccine 10/28/16 Not Given P arent Or Guardian Refuses Medications MiraLax = 17 Gm, By Mouth, Daily, PRN Constipation, 0 Refills, Maintenance, 10/21/16 16:00:58 Start Date: 10/21/16 Status: OrderedOxycodone = 15 mg, By Mouth, Every 8 hours, PRN as needed for pain, 0 Refills, Maintenance, 10/21/16 16:00:05 Start Date: 10/21/16 Status: Ordered Problem List Condition Effective Dates Status Health Status Informant Failed back syndrome, Active lumbosacral(Confirmed) Lumbar radiculitis(Confirmed) Active Myalgia(Confirmed) Active Obese class I(Confirmed) Active Intercostal neuritis(Confirmed) Active Social History Social History Type Response Smoking Status Never (less than 100 in life time) entered on: 08/29/19 Sex
--- OUTSIDE RECORDS SUMMARY | 2022-02-01 12:31 | XMS_ITS | Continuity of Care Document ---
:1970 Author Organization [facility] Address [address] [place] [phone]- Care Team Providers Name Role Phone Vera Moreno DO Primary Care Physician [place] [facility] [place] 07/31/21 - 08/30/21 [facility] [address] [place] [id number] Allergies, Adverse Reactions, Alerts No Known Allergies Immunizations Not Given Vaccine Date Status Refusal Reason pneumococcal 23-valent vaccine 10/28/16 Not Given P arent Or Guardian Refuses Medications Dulcolax Stool Softener 100 mg oral capsule 1 capsule = 100 mg, By Mouth, 2 times a day, PRN for constipation, # 20 capsule, 0 Refills, Maintenance, 11/16/13 6:38:05, Capsule Start Date: 11/16/13 Status: OrderedHibiclens 4% soap See Instructions, 1/2 bottle topically night before procedure, 1/2 bottle morning of procedure, # 120 mL, 0 Refills, Soft Stop, 04/01/20 14:32:00 [facility], [id number], Partial fill upon patient request, 1/2 bottle topically night before pr... Start Date: 04/01/20 Status: OrderedMiraLax = 17 Gm, By Mouth, [...] Active Myalgia(Confirmed) Active Obese class I(Confirmed) Active Social History Social History Type Response Smoking Status Never (less than 100 in life time) entered on: 08/29/19 Sex
--- OUTSIDE RECORDS SUMMARY | 2022-02-01 12:31 | XMS_ITS | Continuity of Care Document ---
:1970 Author Organization [facility] Address [address] [place] [address]- Care Team Providers Name Role Phone Austinivette Nevin JOHNSONfer Marivel Primary Care Physician [id number] Date(s): 07/20/19 - 09/22/19 [facility] [address] [place] [address]- [facility] Attending Physician: Geovanni Rabago MD Admitting Physician: Geovanni Rabago MD Referring Physician: Hood Mcclain MD Allergies, Adverse Reactions, Alerts Substance Reaction Severity [...]
--- OUTSIDE RECORDS SUMMARY | 2022-02-01 12:31 | XMS_ITS | Continuity of Care Document ---
:1970 Author Organization [facility] Address [address] [place] [address]- Care Team Providers Name Role Phone Vera Moreno DO Primary Care Physician [place] [facility] [place] 04/10/20 - 05/10/20 [facility] [address] [place] [id number] Attending Physician: Bobby Vazquez Admitting Physician: Bobby Vazquez Referring Physician: AdmtrBobby Allergies, Adverse Reactions, Alerts Substance Reaction Severity [...] 08/29/19 14:33:00 EDT Start Date: 08/29/19 Status: OrderedHibiclens 4% soap See Instructions, 1/2 bottle topically night before procedure, 1/2 bottle morning of procedure, # 120 mL, 0 Refills, Soft Stop, 04/01/20 14:32:00 EST, [facility] #[id number], Partial fill upon patient request, 1/2 bottle [...] back syndrome, Active lumbosacral(Confirmed) Lumbar radiculitis(Confirmed) Active Social History Social History Type Response Smoking Status Never (less than 100 in life time) entered on: 08/29/19 Sex
--- OUTSIDE RECORDS SUMMARY | 2022-02-01 12:31 | XMS_ITS | Continuity of Care Document ---
:1970 Author Organization [facility] Address [address] [place] [phone]- Care Team Providers Name Role Phone Vera Moreno DO Primary Care Physician [place] [facility] [place]19 - 06/30/19 [facility] [address] [place] [address]- [facility] Attending Physician: Bobby Vazquez Admitting Physician: Bobby Vazquez Referring Physician: Bobby Vazquez Allergies, Adverse Reactions, Alerts Substance Reaction Severity [...] Maintenance, 10/21/16 16:01:29 Start Date: 10/21/16 Status: OrderedMiraLax = 17 Gm, By Mouth, Daily, PRN Constipation, 0 Refills, Maintenance, 10/21/16 16:00:58 Start Date: 10/21/16 Status: OrderedOxycodone = 15 mg, By Mouth, Every 8 hours, PRN as needed for pain, 0 Refills, Maintenance, 10/21/16 16:00:05 Start Date: 10/21/16 Status: OrderedoxyCODONE 5 mg oral tablet 1-2, By Mouth, Every 6 hours, PRN, # 24 tablet, Refills 0, Tot. Refills 0, Maintenance, for pain, 10/28/16 6:40:30, Do Not Route Start Date: 10/28/16 Status: OrderedTopamax 25 mg oral tablet See Instructions, 1 tab HS x 1 week, then if well tolerated, 1 tablet By Mouth Twice a day, # 60 tablet, 3 Refills, Maintenance, 06/20/19 9:23:00 EST, [facility] #[id number], 177.8, cm, 06/20/19 8:34:00 EST, Height Start Date: 06/20/19 Status: Ordered
--- OUTSIDE RECORDS SUMMARY | 2022-02-01 12:32 | XMS_ITS | Continuity of Care Document ---
:1970 Author Organization [facility] Address [address] [place] [address]- Care Team Providers Name Role Phone Vera Moreno DO Primary Care Physician [place] [facility] [place] 09/05/19 - 10/05/19 [facility] [address] [place] [phone]- [facility] Attending Physician: Bobby Vazquez Admitting Physician: Bobby [...]
--- OUTSIDE RECORDS SUMMARY | 2022-02-01 12:32 | XMS_ITS | Continuity of Care Document ---
:1970 Author Organization [facility] Address [address] [place] [phone]- Care Team Providers Name Role Phone Vera Moreno DO Primary Care Physician [place] [facility] [place](s): 02/02/20 - 03/03/20 [facility] [address] [place] [address]- [facility] Allergies, Adverse Reactions, Alerts Substance Reaction Severity [...]
--- OUTSIDE RECORDS SUMMARY | 2022-02-01 12:32 | XMS_ITS | Continuity of Care Document ---
:1970 Author Organization [facility] Address [address] [place] [address]- Care Team Providers Name Role Phone Vera Moreno DO Primary Care Physician En[place] [facility] [place](s): 06/19/20 - 07/19/20 [facility] [address] [place] [id number] Allergies, Adverse Reactions, Alerts Substance Reaction Severity [...] 0 Refills, Soft Stop, 04/01/20 14:32:00 EST, [facility] #[id number], Partial fill upon patient request, 1/2 bottle [...]
--- OUTSIDE RECORDS SUMMARY | 2022-02-01 12:32 | XMS_ITS | Continuity of Care Document ---
:1970 Author Organization [facility] Address [address] [place] [phone]- Care Team Providers Name Role Phone Vera Moreno DO Primary Care Physician [place] [facility] [place]/01/19 [facility] [address] [place] [phone]- [facility] Referring Physician: Vera Moreno DO Allergies, Adverse [...] Do Not Route Start Date: 10/28/16 Status: Ordered Vital Signs Most recent to oldest [Reference Range]: 1 Height 177.8 cm (05/25/19 10:49 AM) Weight 113 kg (05/25/19 10:49 AM) Oxygen Saturation [94-100 %] 98 % (05/25/19 10:49 AM) Pulse Rate [55-90 bpm] 80 bpm (05/25/19 10:49 AM) Body Mass Index [18.5-24.99] 35.74 *>HHI* (05/25/19 10:49 AM) Blood Pressure [90-138/55-84 mm Hg] 122/81 mm Hg (05/25/19 10:49 AM) Temperature [96.8-100.4 DegF] 97.0 DegF (05/25/19 10:49 AM) Blood pressure sites Arm, left (05/25/19 10:49 AM) Temperature Route Temporal (05/25/19 10:49 AM)
--- OUTSIDE RECORDS SUMMARY | 2022-02-01 12:32 | XMS_ITS | Continuity of Care Document ---
:1970 Author Organization [facility] Address [address] [place] [address]- Care Team Providers Name Role Phone Vera Moreno DO Primary Care Physician [place] [facility] [place] 01/19/20 - 02/18/20 [facility] [address] [place] [address]- [facility] Allergies, Adverse Reactions, Alerts Substance Reaction Severity [...]
--- OUTSIDE RECORDS SUMMARY | 2022-02-01 12:32 | XMS_ITS | Continuity of Care Document ---
:1970 Author Organization [facility] Address [address] [place] [phone]- Care Team Providers Name Role Phone Vera Morneo DO Primary Care Physician [place] [facility] [place] 06/20/19 - 06/27/19 [facility] [address] [place] [address] [facility] Encounter Diagnosis Failed back syndrome of lumbar spine (Discharge Diagnosis) - 06/20/19 Right lumbar radiculitis (Discharge Diagnosis) - 06/20/19 Lumbar facet joint syndrome (Discharge Diagnosis) - 06/20/19 Lateral pain of right hip (Discharge Diagnosis) - 06/20/19 Attending Physician: Hood Mcclain MD Referring Physician: [...] tablet, 3 Refills, Maintenance, 06/20/19 9:23:00 EST, [facility] #[id number], 177.8, cm, 06/20/19 8:34:00 EST, Height Start Date: 06/20/19 Status: Ordered Problem List Diagnosis Diagnosis Type Effective Dates Health Clinical Infor mant Status Service Failed back Discharge 06/20/19 syndrome of lumbar Diagnosis spine Right lumbar Discharge 06/20/19 radiculitis Diagnosis Lumbar facet joint Discharge 06/20/19 syndrome Diagnosis Lateral pain of Discharge 06/20/19 right hip Diagnosis Vital Signs Most recent to oldest [Reference Range]: 1 Height 177.8 cm (06/20/19 8:34 AM) Weight 113.8 kg (06/20/19 8:34 AM) Oxygen Saturation [94-100 %] 98 % (06/20/19 8:34 AM) Pulse Rate [55-90 bpm] 80 bpm (06/20/19 8:34 AM) Body Mass Index [18.5-24.99] 36 *>HHI* (06/20/19 8:34 AM) Blood Pressure [90-138/55-84 mm Hg] 126/80 mm Hg (06/20/19 8:34 AM) Temperature [96.8-100.4 DegF] 98.6 DegF (06/20/19 8:34 AM) Blood pressure sites Arm, right (06/20/19 8:34 AM) Temperature Route Temporal (06/20/19 8:34 AM)
--- OUTSIDE RECORDS SUMMARY | 2022-02-01 12:32 | XMS_ITS | Continuity of Care Document ---
:1970 Author Organization [address] [place] [address]- Care Team Providers Name Role Phone Vera Moreno DO Primary Care Physician [place] [facility] [place] 11/01/[address], [address] [place] [address]- [facility] Attending Physician: Bobby Vazquez Admitting Physician: oBbby Vazquez Referring Physician: AdmtrBobby Allergies, Adverse Reactions, [...]
--- OUTSIDE RECORDS SUMMARY | 2022-02-01 12:32 | XMS_ITS | Continuity of Care Document ---
:1970 Author Organization [address] [place] [address]- Care Team Providers Name Role Phone Vera Moreno DO Primary Care Physician Encounter [facility] [place] Date(s): 09/13/19 - 11/01/[address], [address] [place] [address]- [facility] Attending Physician: Zuleika Turcios DO Referring Physician: Vera Moreno DO Allergies, Adverse [...]
--- OUTSIDE RECORDS SUMMARY | 2022-02-01 12:32 | XMS_ITS | Continuity of Care Document ---
:1970 Author Organization [facility] Address [address] [place] [id number]- Care Team Providers Name Role Phone Vera Moreno DO Primary Care Physician [id number] Date(s): 08/29/19 - 09/28/19 [facility] [address] [place] [id number]- [facility] Attending Physician: Bobby Vazquez Admitting Physician: Bobby Vazquez Referring Physician: Bobby Vazquez Referring Physician: Berlin Muniz Allergies, Adverse Reactions, Alerts Substance Reaction Severity [...]
--- OUTSIDE RECORDS SUMMARY | 2022-02-01 12:32 | XMS_ITS | Continuity of Care Document ---
:1970 Author Organization [facility] Address [address] [place] [id number]- Care Team Providers Name Role Phone Vera Moreno DO Primary Care Physician [id number] Date(s): 04/23/21 - 06/06/21 [facility] [address] [place] [id number] Attending Physician: Sebas Moore MD Admitting Physician: Sebas Moore MD Allergies, Adverse Reactions, Alerts No Known Allergies [...] mL, 0 Refills, Soft Stop, 04/01/20 14:32:00 [id number] upon patient request, 1/2 bottle [...]
[2022-02-01 13:30] LABS: Appearance Urine Clear; Color Urine Yellow; Glucose Urine UA Negative (Negative); Leukocyte Esterase Urine Negative (Negative); Nitrite Urine Negative (Negative); Urine Blood Negative (Negative); Urine Ketones Negative (Negative); Urine Protein Negative (Neg-Trace)
--- NOTE | 2022-02-01 13:30 | PC.NURSE ---
post void bladder scan 70mls. Joni PUGA notfied.
--- NOTE | 2022-02-01 13:50 | ED_ITS ---
HPI - Back Pain/Injury General Chief Complaint: Back Pain/Injury Stated Complaint: lower back pain Time Seen by Provider: 02/01/22 13:14 History of Present Illness HPI Narrative: Patient complains of low back pain radiating into both legs for about 2 weeks, no injury, denies any numbness weakness or tingling,, no acute changes to bowel or bladder no incontinence no dysuria He did mention when asked that for many months he has been waking up multiple times at night to urinate and frequently feels pressure to urinate but he has had no incontinence and no changes associated with this flare of back pain Related Data Previous Rx's Medication Instructions Recorded diazepam 5 mg tablet (Valium) 5 mg PO TID PRN muscle spasm #14 03/23/21 tabs oxycodone 10 mg tablet,crush 10 mg PO Q12H Severe pain #14 tabs 03/23/21 resistant,extended release 12 hr (OxyContin) polyethylene glycol 3350 17 17 g PO DAILY #510 grams 08/06/21 gram/dose oral powder (Miralax) acetaminophen 500 mg tablet 1,000 mg PO QID PRN pain #30 tabs 02/01/22 ibuprofen 600 mg tablet 600 mg PO Q6H PRN pain #20 tabs 02/01/22 Allergies Allergy/AdvReac Type Severity Reaction Status Date / Time No Known Allergies Allergy Verified 08/04/21 18:12 Review of Systems Review of Systems: Positive for back pain radiating to both legs Negatives no fever no chills no dizziness no weakness no fainting no feeling faint no headache no neck pain no chest pain no abdominal pain no dysuria no incontinence no constipation no skin rash no numbness weakness or tingling Yes all other systems are reviewed and are negative PMFSH Past Medical History Source: nursing notes reviewed Medical History Cervical vertebral fusion Chronic back pain Surgical History H/O hernia repair History of carpal tunnel surgery History of cholecystectomy History of neck surgery Previous back surgery Social History Social History Advance Directives: No Advance Directives Information Provided: Yes Physical Exam Vital Signs: Vital Signs: Last Vital Signs Temp 97.0 F 02/01/22 12:20 Pulse 80 02/01/22 12:20 Resp 18 02/01/22 12:20 BP 114/73 02/01/22 12:20 Pulse Ox 97 02/01/22 12:20 O2 Del Method 02/01/22 12:20 BMI result Body Mass Index 33.0 General appearance no distress Head is normocephalic atraumatic Neck is supple Chest clear to auscultation bilateral The abdomen soft nontender The back had bilateral lower lumbar and upper gluteal tenderness, skin was normal no redness no mass palpated, no focal bony tenderness no CVA tenderness, pain easily reproduced with movement Extremities for range of motion x4 Gait and balance are normal Neuro no focal motor sensory deficits, motor is 5/5 x4, sensation is intact and symmetrical Course Course Course Narrative: Patient with back pain radiating to both legs with no neurologic deficit is advised to follow with his back surgeon from a prior surgery Dr. Yin and primary doctor His frequent urination does not seem to be associated with this back pain as it has been going on for many months and is likely related to his prostate so he is advised to follow with this for his doctor His postvoid residual was 70 A urinalysis was negative MDM - Back Pain/Injury Lab Data Labs: Lab Results 02/01/22 Range/Units 13:23 Urine Color Yellow Urine Appearance Clear Urine pH 6.0 (5.0-9.0) Ur Specific [place] 1.020 (1.005-1.025) Urine Protein Negative (Neg-Trace) mg/dL Urine Glucose (UA) Negative (Negative) mg/dL Urine Ketones Negative (Negative) mg/dL Urine Blood Negative (Negative) Urine Nitrite Negative (Negative) Ur Leukocyte Esterase Negative (Negative) Discharge Plan Discharge Clinical Impression: Back pain Patient Disposition: Home, Self-Care Additional Instructions: Follow with Dr. Yin your back surgeon and her primary care doctor for further evaluation Return any time for incontinence weakness in legs severe out of control pain fever any worse condition or any concern Urinalysis was normal no sign of infection Her frequent urination does not seem to be related to her back and it may be a prostate issue so follow with primary doctor Prescriptions: New acetaminophen 500 mg tablet 1,000 mg PO QID PRN (Reason: pain) Qty: 30 0RF ibuprofen 600 mg tablet 600 mg PO Q6H PRN (Reason: pain) Qty: 20 0RF No Action polyethylene glycol 3350 [Miralax] 17 gram/dose powder 17 g PO DAILY Qty: 510 0RF diazepam [Valium] 5 mg tablet 5 mg PO TID PRN (Reason: muscle spasm) Qty: 14 0RF oxycodone [OxyContin] 10 mg tablet,oral only,ext.rel.12 hr 10 mg PO Q12H Qty: 14 0RF Rx Instructions: May be partially filled upon patient request Stand Alone Forms: Work/School Release
== END 2022-02-01 14:03 | disposition home or self-care (01) ==
PROVIDERS: Physician Assistant Medical; Emergency Provider Emergency Medicine Emergency Medical Services; PCP Family Medicine
DX: M54.50 Low back pain, unspecified (principal)
CPT/HCPCS: 81003; 99282

== ENCOUNTER 2022-03-10 07:33 | Outpatient (REF) | payer BC, SELFPAY ==
--- NOTE | ~2022-03-10 | XR_ITS ---
EXAMINATION: X-RAY RIGHT HIP X-RAY LEFT HIP CLINICAL INFORMATION: Pain. COMPARISON: CT abdomen/pelvis 08/06/2021. TECHNIQUE: 2 views of each hip were obtained. FINDINGS: Right hip: No acute fracture or malalignment. Mild superolateral joint space narrowing with subcortical sclerosis and osteophytes. Prominent well-corticated osseous fragment adjacent to the anterior-inferior iliac spine, unchanged compared to CT from 08/06/2021. Subtle well-corticated enthesophytes adjacent to the greatest contour. Pelvic phleboliths are noted. Left hip: No acute fracture or malalignment. Similar to the right side, there is mild to moderate osteoarthritis. No significant soft tissue abnormality. XR/XR hip LT min 2V IMPRESSION: 1. No acute fracture or malalignment. 2. Mild to moderate bilateral hip osteoarthritis. 3. Prominent well-corticated osseous fragment adjacent to the right anterior-inferior iliac spine, unchanged compared to 08/06/2021.
--- NOTE | ~2022-03-10 | XR_ITS ---
EXAMINATION: X-RAY RIGHT HIP X-RAY LEFT HIP CLINICAL INFORMATION: Pain. COMPARISON: CT abdomen/pelvis 08/06/2021. TECHNIQUE: 2 views of each hip were obtained. FINDINGS: Right hip: No acute fracture or malalignment. Mild superolateral joint space narrowing with subcortical sclerosis and osteophytes. Prominent well-corticated osseous fragment adjacent to the anterior-inferior iliac spine, unchanged compared to CT from 08/06/2021. Subtle well-corticated enthesophytes adjacent to the greatest contour. Pelvic phleboliths are noted. Left hip: No acute fracture or malalignment. Similar to the right side, there is mild to moderate osteoarthritis. No significant soft tissue abnormality. XR/XR hip RT min 2V IMPRESSION: 1. No acute fracture or malalignment. 2. Mild to moderate bilateral hip osteoarthritis. 3. Prominent well-corticated osseous fragment adjacent to the right anterior-inferior iliac spine, unchanged compared to 08/06/2021.
--- NOTE | ~2022-03-10 | XR_ITS ---
EXAMINATION: XR RIBS, RIGHT, PA CHEST CLINICAL INFORMATION: Thoracic back pain. COMPARISON: Chest radiograph dated 06/07/2017. TECHNIQUE: 3 views of the right ribs were obtained along with a PA view of the chest. FINDINGS: Lungs are clear. No consolidation, pneumothorax, or pleural effusion. The cardiomediastinal silhouette and pulmonary vasculature are normal. Osseous structures are unremarkable. Ribs are intact. No fractures are identified. Mild lumbar dextro scoliosis and multilevel degenerative changes. Surgical clips overlie the right upper quadrant. Partially visualized cervical anterior fixation plate without overt abnormality. XR/XR ribs RT min 3V w [id number] IMPRESSION: 1. No acute right rib fracture. 2. Mild lumbar dextro scoliosis and multilevel degenerative changes. No acute abnormality.
--- NOTE | ~2022-03-10 | XR_ITS ---
EXAMINATION: XR FOOT, LEFT CLINICAL INFORMATION: Pain. COMPARISON: Left foot radiograph 10/28/2017. TECHNIQUE: AP, lateral, and oblique views of the left foot. FINDINGS: A 4 mm well-corticated osseous fragment just superior to the proximal talus on the lateral view, is unchanged compared to 10/28/2017, possibly sequela of prior avulsion injury or degenerative enthesophytes. Similar dorsal calcaneus spurs. No acute fracture or malalignment. Mild joint space narrowing and subcortical sclerosis of the first metatarsophalangeal joint, slightly progressed compared to 10/28/2017. Similarly, joint space narrowing, subcortical sclerosis and small osteophytes at multiple interphalangeal joints, slightly progressed since 2018. No abnormal soft tissue calcifications. Diffuse nonspecific soft tissue swelling. XR/XR foot LT min 3V IMPRESSION: 1. No acute fracture or malalignment. 2. Mild degenerative osteoarthritis of the first metatarsophalangeal joint and interphalangeal joint, slightly progressed compared to 10/28/2017. 3. Again noted dorsal calcaneus spurs which could lead to pain, stable compared to 2018. 4. Nonspecific diffuse soft tissue swelling.
[2022-03-10 08:33] LABS: Hematocrit 46.5 % (42.0-52.0); Hemoglobin 14.7 g/dl (14.0-18.0); Mean Corpuscular HGB Conc 31.6 g/dl (31.0-36.0); Mean Corpuscular Hemoglobin 26.5 pg (27.0-33.0); Mean Corpuscular Volume 83.9 fL (80.0-98.0); Mean Platelet Volume 12.4 fL (9.4-12.4); Platelet Count 171 X10*3/uL (160-400); Red Blood Count 5.54 X10*6/uL (4.60-5.80); Red Cell Distribution Width 12.5 % (11.0-16.0)
[2022-03-10 09:43] LABS: Appearance Urine Clear; Color Urine Yellow; Glucose Urine UA Negative (Negative); Leukocyte Esterase Urine Negative (Negative); Nitrite Urine Negative (Negative); PH 6.5 (5.0-9.0); Specific Gravity - Urine 1.015 (1.005-1.025); Urine Blood Negative (Negative); Urine Ketones Negative (Negative); Urine Protein Negative (Neg-Trace)
[2022-03-10 09:50] LABS: Bacteria Urine None Seen (None Seen); Hyaline Casts Urine 0-2 /LPF (0-2); RBC Urine 0-2 /HPF (0-2); Squamous Epithelial Cell Urine 0-2 /HPF (0-2); WBC Urine 0-5 /HPF (0-5)
[2022-03-10 10:36] LABS: Estimated Average Glucose 117 mg/dL; Hemoglobin A1c % 5.7 %
[2022-03-10 10:39] LABS: Alanine Aminotransferase 23 U/L (0-40); Albumin Level 4.6 g/dL (3.5-5.0); Alkaline Phosphatase 90 U/L (39-117); Anion Gap 13 (12-20); Aspartate Amino Transferase 21 U/L (5-37); Bilirubin Direct 0.2 mg/dL (0.0-0.5); Bilirubin Total 0.7 mg/dL (0.0-1.0); Blood Urea Nitrogen 17 mg/dL (9-16); Carbon Dioxide 28 mmol/L (22-29); Chloride 103 mmol/L (96-108); Cholesterol 230 mg/dL; Estimated Glomerular Filt Rate > 60; Free T4 (Free Thyroxine) 1.01 ng/dL (0.71-1.85); Glucose Random 102 mg/dL (60-115); HDL Cholesterol 35 mg/dL; LDL Cholesterol Calculated 142 mg/dl; Potassium 4.4 mmol/L (3.3-5.1); Sodium 140 mmol/L (135-145); Thyroid Stimulating Hormone 1.33 uIU/mL (0.32-4.0); Total Protein 7.3 g/dL (6.5-8.0); Triglycerides 266 mg/dL; Vitamin D 25-OH Total 19.5 ng/mL (>30)
[2022-03-10 10:50] LABS: HBS Num1 7.44 mIU/mL (0-7.99); HBsAGNum1 0.25 S/CO (0.00-0.99); HIV AB/AG Nonreactive (Nonreactive); HIV Num 1 0.11 S/CO (0.00-0.99); Hepatitis B Surface Antigen Negative (Negative); ~Hepatitis B Surface Antibody NONREACTIVE (Nonreactive)
[2022-03-10 10:50] LABS: ~HepC Num1 0.15 S/CO (0.00-0.79); ~Hepatitis C Antibody Nonreactive (Nonreactive)
[2022-03-10 11:13] LABS: CT PCR NOT DETECTED (Not Detect.); NG PCR NOT DETECTED (Not Detect.)
[2022-03-11 05:54] LABS: Syphilis Screen Nonreactive (Nonreactive)
[2022-03-12 19:02] LABS: Varicella IgG Antibody <135.00 index
== END 2022-03-10 07:34 | disposition home or self-care (01) ==
LOC: HO.XRAY 07:33
PROVIDERS: PCP Family Medicine; Visit Provider Family Medicine
DX: Z11.4 Encounter for screening for human immunodeficiency virus [HIV] (principal); Z11.3 Encounter for screening for infections with a predominantly sexual mode of transmission; M54.6 Pain in thoracic spine; M25.551 Pain in right hip; M25.552 Pain in left hip; M79.672 Pain in left foot; E78.5 Hyperlipidemia, unspecified; R73.03 Prediabetes
CPT/HCPCS: 71101; 73502; 73630; 80048; 80061; 80076; 81001; 82306; 83036; 84439; 84443; 85027; 86706; 86780; 86787; 86803; 87340; 87389; 87491; 87591

== ENCOUNTER 2022-04-03 07:24 | Outpatient (REF) | payer BC, SELFPAY | END 2022-04-03 07:25 | disposition home or self-care (01) | LOC: HO.HOSX 07:24 | PROVIDERS: Visit Provider Physician Assistant | DX: Z13.89 Encounter for screening for other disorder (principal) ==